=== PATIENT | female | born 1960 | race Asian ===

== ENCOUNTER 2017-06-26 11:34 | Emergency (ER) | payer OTHER ==
[~2017-06-26] VITALS: Ht 149.9 cm; Wt 61.4 kg
[2017-06-26 13:50] VITALS: BP 138/85
== END 2017-06-26 14:13 | disposition home or self-care (01) ==
LOC: EMS 11:36
DX: S93.602A Unspecified sprain of left foot, initial encounter (principal); X50.1XXA Overexertion from prolonged static or awkward postures, initial encounter; Y93.89 Activity, other specified; Y92.89 Other specified places as the place of occurrence of the external cause; Y99.8 Other external cause status
CPT/HCPCS: 99284